=== PATIENT | female | born 1940 | race Caucasian/White ===

== ENCOUNTER 2021-11-29 10:44 | Emergency (ER) | payer MEDICARE ==
[~2021-11-29] VITALS: Ht 167.6 cm; Wt 65.8 kg
[2021-11-29] MEDS ORDERED: LOVASTATIN 20 M20 MG PO (10:47)
[2021-11-29] MEDS ORDERED: KEPPRA750 MG PO (10:47)
[2021-11-29] MEDS ORDERED: LEVO-T25 MCG PO (10:47)
[2021-11-29] MEDS ORDERED: XARELTO2.5 MG PO (10:48)
[2021-11-29] MEDS ORDERED: LISINOPRIL10 MG PO (10:48)
[2021-11-29] MEDS ORDERED: XARELTO20 MG PO (10:52)
[2021-11-29] MEDS ORDERED: LEVOTHYROXINE88 MCG PO (10:52)
[2021-11-29] MEDS ORDERED: KEPPRA 500 MG500 M1 PO (10:52)
[2021-11-29 11:40] LABS: BASOPHILS 1.3 % (0.0-2.0); EOSINOPHILS 0.9 % (0.0-3.0); HEMATOCRIT 39.5 % (37.0-47.0); HEMOGLOBIN 13.1 gm/dL (12.0-15.0); LYMPHOCYTES 20.6 % (24.0-44.0); MCH 29.2 pg (26.0-34.0); MCHC 33.3 g/dL (28.0-37.0); MCV 87.7 fL (80.0-100.0); MONOCYTES 9.7 % (1.0-8.0); PLATELET COUNT 200 thou/uL (150-400); POLYS 67.5 % (36.0-66.0); RDW 14.7 % (10.5-14.5); WBC 5.9 thou/uL (4.0-11.0)
[2021-11-29 11:45] LABS: CALCIUM 9.4 mg/dL (8.5-10.1); CREATININE 0.6 mg/dL (0.6-1.0)
[2021-11-29 11:46] LABS: POTASSIUM 4.7 mmol/L (3.5-5.1)
[2021-11-29 11:55] LABS: ALBUMIN 3.8 g/dL (3.4-5.0); TOTAL BILIRUBIN 0.6 mg/dL (0.2-1.0); TOTAL PROTEIN 6.8 g/dL (6.4-8.2)
[2021-11-29 13:14] LABS: URINE BILIRUBIN NEGATIVE (Negative); URINE BLOOD NEGATIVE (Negative); URINE CLARITY CLEAR; URINE COLOR YELLOW; URINE GLUCOSE-RANDOM* NEGATIVE (Negative); URINE KETONES NEGATIVE (Negative); URINE LEUKOCYTES-REFLEX NEGATIVE (Negative); URINE NITRITE-REFLEX NEGATIVE (Negative); URINE PROTEIN (DIPSTICK) NEGATIVE (Negative); URINE SPECIFIC GRAVITY 1.015 (1.005-1.035); URINE UROBILINOGEN 0.2 E.U./dl (0.2-1.0)
[2021-11-29 15:40] VITALS: BP 138/82
--- NOTE | 2021-11-30 07:32 | EKG ---
[address] [place] [address] ELECTROCARDIOGRAM REPORT Name: MANNY CHAVARRIA [id number] Admission: 11/29/21 Attend Phys: Discharge: 11/29/21 Date of : 40 Report #: [id number] [facility] ED Test Date: 2021-11-29 Test Time: 10:54:20 Pat Name: MANNY CHAVARRIA Department: Room: Gender: F [employer] Director: EVELYN : 1940 Requested By: Jimena Quevedo Order Number: [id number] MD: Donavon Limon Measurements Intervals [place] Rate: 66 P: 61 WV: 171 QRS: -25 QRSD: 101 T: 32 QT: 396 QTc: 415 Interpretive Statements Sinus rhythm Borderline left axis deviation RSR' in V1 or V2, right VCD or RVH Compared to ECG 07/20/1991 04:26:00 Right ventricular hypertrophy now present RSR' in V1 or V2 now present T-wave abnormality no longer present Electronically Signed On 11-30-2021 7:32:17 [employer] by Donavon Limon [email or web address] <ELECTRONICALLY SIGNED> By: Donavon Limon MD, FACC 11/30/21 0732 1054 [id number] Donavon Limon MD, [facility] /EPI
== END 2021-11-29 15:40 | disposition home or self-care (01) ==
LOC: ER 10:44
PROVIDERS: Emergency Medicine
DX: R53.1 Weakness (principal); Z20.822 Contact with and (suspected) exposure to COVID-19; R11.0 Nausea; Z86.73 Personal history of transient ischemic attack (TIA), and cerebral infarction without residual deficits; Z95.0 Presence of cardiac pacemaker; Z88.0 Allergy status to penicillin; Z88.5 Allergy status to narcotic agent